=== PATIENT | male | born 1950 | race Caucasian/White ===

== ENCOUNTER 2017-05-31 20:15 | Emergency (ER) | payer MEDICARE, OTHER ==
[~2017-05-31] VITALS: Ht 175.3 cm; Wt 63.5 kg
--- NOTE | ~2017-05-31 | EKG ---
PATIENT: JOHN CONSTANTINO UNIT #: [id number] Ventricular Rate: 47 BPM Atrial Rate: 47 BPM P-R Interval: 192 ms QRS Duration: 88 ms Q-T Interval: 486 ms QTC Calculation(Bezet): 430 ms P [place]: 18 degrees Calculated R [place]: 8 degrees Calculated T [place]: 19 degrees Diagnosis Line: Marked sinus bradycardia Diagnosis Line: Abnormal ECG Diagnosis Line: No previous ECGs available Diagnosis Line: Confirmed by SAIGE ALEXANDRE MD ([id number]) on Diagnosis Line: 06/02/2017 4:04:37 PM INTERPRETING MD: BETTIE HAMMER
--- NOTE | ~2017-05-31 | CR63 ---
[facility]. [facility] A Service of [facility] & [facility] RADIOLOGY TEXT RESULTS PATIENT: JOHN CONSTANTINO LOCATION: SED : 52 UNIT #: [id number] AGE: [address]: Dominick Solis DO SEX: M ORDER DR: [id number] [address] [address] [id number] MR#: [id number] Acc #: [id number] NAME: JOHN CONSTANTINO : 1950 SEX: M STUDY DATE/TIME: 05/31/2017 21:04 UNIT: SED ROOM: STUDY DESCRIPTION: CR Chest 2 View Attending Physician: (Res) Dominick Solis Ordering Physician: (Res) Dominick Solis Primary Care Physician: Behzad Ledbetter M.D. MEDICAL IMAGING REPORT This report is preliminary unless electronic signature is present. EXAM Two-view chest. HISTORY Chest pain with inspiration x1 week. COMPARISON 06/11/2016 FINDINGS Two views of the chest demonstrates moderate lung volumes satisfactory technique. No infiltrates or effusions. Heart, mediastinum, great vessels unremarkable. Mild degenerative changes of thoracic spine. Surgical clips noted at the GE junction. IMPRESSION No active disease. Dictated by... Omar Yang M.D. THIS IS AN ELECTRONICALLY VERIFIED REPORT Omar Yang M.D. at 06/01/2017 2:04 PM Martita TD: 05/31/2017 23:30 JOB #: [id number] MEDICAL IMAGING REPORT Page 1 of 1
[~2017-05-31 20:15] MED LIST: CAPTOPRIL PO; IBUPROFEN PO; LEVAQUIN PO; LORTAB 2.5/5001 TAB PO; ULTRAM PO; ZOCOR PO
[2017-05-31 21:37] LABS: BASOPHIL# 0.1 X10e3 (0-0.3); BASOPHIL% 1.3 % (0-2.5); EOSINOPHIL# 0.3 X10e3 (0-0.7); EOSINOPHIL% 5.2 % (0.0-7.0); HEMATOCRIT 38.2 % (38.0-50.0); LYMPHOCYTE# 2.9 X10e3 (1.0-3.5); LYMPHOCYTE% 47.1 % (17.0-45.0); MEAN CELL VOLUME 89.7 FL (83-96); MEAN CORPUSCULAR HEMOGLOBIN 30.6 PG (28-34); MEAN CORPUSCULAR HGB CONC 34.1 g/dL (30-36); MEAN PLATELET VOLUME 8.5 FL (6.5-11.5); MONOCYTE# 0.6 X10e3 (0-1.0); MONOCYTE% 10.1 % (3.0-12.0); NEUTROPHIL# 2.2 X10e3 (1.5-7.1); NEUTROPHIL% 36.3 % (40-75); PLATELET COUNT 137 X10e3 (140-420); RED BLOOD COUNT 4.25 X10e (3.90-5.60); RED CELL DISTRIBUTION WIDTH 12.9 % (11.0-15.5); WHITE BLOOD COUNT 6.2 X10e3 (4.0-10.5)
[2017-05-31 21:39] LABS: DIFF IND NO
[2017-05-31 22:02] LABS: ALBUMIN SERUM 4.4 g/dL (3.5-5.0); ALKALINE PHOSPHATASE 58 U/L (32-92); ALT (SGPT) 21 U/L (10-40); AST (SGOT) 29 U/L (10-42); BILIRUBIN,TOTAL 0.4 mg/dL (0.2-2.0); BLOOD UREA NITROGEN 18 mg/dL (9-23); CALCIUM SERUM 9.1 mg/dL (8.4-10.2); CARBON DIOXIDE 30 mmol/L (22-31); CHLORIDE 103 mmol/L (100-111); GLOM FILT RATE Estimated 78.6 mL/min (>60); GLUCOSE FASTING 126 mg/dL (70-110); POTASSIUM 4.1 mmol/L (3.5-5.1); PROTEIN TOTAL SERUM 7.6 g/dL (6.0-8.3); SODIUM 139 mmol/L (135-145)
[2017-05-31 22:04] LABS: BILIRUBIN, DIRECT <0.1 mg/dL (0.0-0.2); BILIRUBIN,INDIRECT 0.3 mg/dL (0.0-0.9)
[2017-05-31 23:23] LABS: POC - CKMB 3.6 ng/mL (0.0-7.9); POC - TROPONIN <0.05 ng/mL (<=0.05)
[2017-05-31 23:24] LABS: INR 1.1; PROTHROMBIN TIME (PATIENT) 12.7 SECONDS (9.5-12.4)
[2017-05-31 23:32] LABS: PARTIAL THROMBOPLASTIN TIME 28.5 SECONDS (25.6-38.1)
== END 2017-05-31 23:27 | disposition home or self-care (01) ==
LOC: SED 20:15
PROVIDERS: Emergency Medicine
DX: R00.1 Bradycardia, unspecified (principal); S16.1XXA Strain of muscle, fascia and tendon at neck level, initial encounter; Z79.899 Other long term (current) drug therapy; X58.XXXA Exposure to other specified factors, initial encounter; Y92.89 Other specified places as the place of occurrence of the external cause
CPT/HCPCS: 36415; 71020; 80048; 80076; 82553; 84484; 85025; 85610; 85730; 87040; 93005; 96374; 99285; J1885